=== PATIENT | female | born 1990 | race Two or more races ===

== ENCOUNTER 2025-07-20 20:36 | Emergency (ER) | payer OTHER, SELFPAY ==
[2025-07-20 20:45] VITALS: BP 124/83; PULSE 108; RESP 20; TEMP 37.2; O2SAT 96; BMI 34.4
--- NOTE | 2025-07-20 21:11 | PD.EDABDPN ---
ED Abdominal Pain RME/HPI General Chief Complaint: Abdominal Pain Stated complaint: POSS FEEDING TUBE INFECTION Time seen by provider: 07/20/25 20:46 Arrival date/time: 07/20/25 20:36 RME / HPI RME / HPI narrative: See [facility] for Dr. Cuevas's HPI documentation. Related Data Previous Rx's ?Medication ?Instructions ?Recorded albuterol sulfate 90 mcg/actuation 2 puff inhalation Q6H PRN 07/21/25 aerosol inhaler shortness of breath or wheezing #8.5 grams hydrocodone 5 mg-acetaminophen 325 2 tab PO Q8H PRN pain #20 tabs 07/21/25 mg tablet ondansetron 4 mg disintegrating 4 mg PO TID PRN nausea and 07/21/25 tablet vomiting 30 days #10 tabs oseltamivir 75 mg capsule (Tamiflu) 75 mg PO BID 5 days #10 caps 07/21/25 prednisone 50 mg tablet 50 mg PO QDAY #3 tabs 07/21/25 Allergies Allergy/AdvReac Type Severity Reaction Status Date / Time No Known Allergies Allergy Verified 07/20/25 20:37 Review of Systems Review of Systems Systems Reviewed: All systems reviewed, normal except as documented Past Medical History Social History SMOKING STATUS: Never smoker ED Exam Narrative Physical exam: See [facility] for Dr. Cuevas's physical exam documentation. Course Quality Measures none Orders Category Date Time Status Bedside COVID-19 Antigen Test NOW Care 07/20/25 21:18 Completed Bedside Influenza A&B Antigen Test NOW Care 07/20/25 21:[address] chest abdomen pelvis wo Stat Exams 07/20/25 21:19 Completed US abdomen limited Stat Exams 07/20/25 21:19 Completed Amylase Stat Lab 07/20/25 21:32 Completed Beta Hydroxybutyrate Stat Lab 07/20/25 21:32 Completed Bilirubin,Direct Stat Lab 07/20/25 21:32 Completed CBC Stat Lab 07/20/25 21:32 Completed CMP [Comprehensive Metabolic Panel] Stat Lab 07/20/25 21:32 Completed CRP [C-Reactive Protein] Stat Lab 07/20/25 21:32 Completed ESR [Sed Rate (ESR)] Stat Lab 07/20/25 21:32 Completed HCG,Qualitative Serum Stat Lab 07/20/25 21:32 Completed Lipase Stat Lab 07/20/25 21:32 Completed Magnesium Stat Lab 07/20/25 21:32 Completed Procalcitonin Stat Lab 07/20/25 21:32 Completed UA, C/S IF [Urinalysis, C/S if Indicated] Stat Lab 07/20/25 22:07 Completed ACETAMINOPHEN w/COD 300-30 [Tylenol w/Cod #3] Med 07/20/25 21:18 Discontinued 2 tab PO X1 ONE Morphine* Inj Med 07/20/25 22:55 Discontinued 10 mg IM X1 ONE Ondansetron Odt [Zofran Odt] Med 07/20/25 21:18 Discontinued 4 mg PO X1 ONE Oseltamivir [Tamiflu] Med 07/20/25 22:09 Discontinued 75 mg PO X1 ONE Vital Signs Vital signs: Vital Signs Temperature 98.9 F 07/20/25 20:45 Pulse Rate 108 H 07/20/25 20:45 Respiratory Rate 20 07/20/25 20:45 Blood Pressure 124/83 07/20/25 20:45 Pulse Oximetry (%) 96 07/20/25 20:45 Oxygen Delivery Method Room Air 07/20/25 20:45 Abdominal Pain MDM MDM Narrative MDM Narrative:: This section includes all my notes and documentations, including HPI, PE, and ED course. Andrey Cuevas MD HPI: 35yo female with a history of gastroparesis s/p G-tube placement here with vomiting and abdominal pain for several days. No diarrhea. No other complaints reported. ROS: All negative except as documented in HPI. Physical Exam: General: Alert and oriented. No acute distress when remaining still. Eyes: Conjunctivae and lids clear. ENT: No nasal congestion. Neck: Supple. Heart: RRR. Lungs: No respiratory distress. Good air movement. No rhonchi, wheezing, rales. Abdomen: Soft and nontender. Normal bowel sounds. No distension. No rebound or guarding. Back: No CVA tenderness. Skin: Warm and dry. Neuro: Alert and oriented X 3. I reviewed all diagnostic test results. My review of the abdominal ultrasound report is NAD. My review of the CT abdomen pelvis report is NAD. Blood tests and urine tests are unremarkable. COVID negative. Influenza positive. At this point, diagnoses include: Influenza Treatment here included: Tylenol with Codeine Morphine Zofran Tamiflu Significant improvement noted. Recommend outpatient management. Based on my best medical judgment, made decision no further evaluation or treatment indicated at this time. Patient understands and agrees to the discharge instructions customized and printed, see below. Discharge instructions from Dr. Cuevas: --No physical exertion for 3 days to help rest your lungs. --No smoking and no exposure to smoking or pets or dust or cold air. --Tamiflu to kill the influenza germs. --Prednisone to help decrease inflammation of the lungs. --Dixon for severe pain. --Albuterol 2 puffs every 4-6 hours as needed for cough or shortness or breath. ?Increase oral fluid. We need extra fluid when we are sick. Zofran for nausea/vomiting. --See a private doctor next week if not completely better. --Seek immediate medical care with significant worsening or with any concerns. Andrey Cuevas MD Patient data External records reviewed:: [facility] previous records (Per chart review, patient has no previous ED visits or admissions to this facility.) Clinical information provided by:: patient Social determinants that could affect healthcare access:: none Patient has the following chronic illnesses:: none How is presenting disease/condition affected by chronic disease/condition?: no chronic disease Evaluation data The following diagnostics were reviewed and interpreted by me:: lab results and radiology exam(s) Lab and/or radiology exams considered but not ordered:: none Interpretation Summary: I reviewed all diagnostic test results. My review of the abdominal ultrasound report is NAD. My review of the CT abdomen pelvis report is NAD. Blood tests and urine tests are unremarkable. COVID negative. Influenza positive. Medications / Prescriptions Medications or Prescriptions considered but not ordered:: none Medication administrations:: Medication Administration History Discontinued Medications Acetaminophen/Codeine Phosphate (Acetaminophen W/Cod 300-30 Tablet) 2 tab PO X1 ONE Stop: 07/20/25 21:19 Last Admin: 07/20/25 21:47 Dose: 2 tab Documented By: CVL Morphine Sulfate (Morphine Sulf Inj 4 Mg/Ml Vial) 10 mg IM X1 ONE Stop: 07/20/25 22:56 Last Admin: 07/20/25 23:40 Dose: 10 mg Documented By: CVL Ondansetron HCl (Ondansetron Odt 4 Mg Tabrap) 4 mg PO X1 ONE; Protocol Stop: 07/20/25 21:19 Last Admin: 07/20/25 21:47 Dose: 4 mg Documented By: CVL Oseltamivir Phosphate (Oseltamivir 75 Mg Capsule) 75 mg PO X1 ONE Stop: 07/20/25 22:10 Last Admin: 07/20/25 22:45 Dose: 75 mg Documented By: CVL Tylenol with Codeine, Morphine, Zofran, Tamiflu Consultations Consultation(s) initiated? (list below): No Diagnosis Differential diagnosis abdominal pain: acute appendicitis, calculus of kidney, constipation, diverticulitis, endometriosis, gastroenteritis, pancreatitis, small bowel obstruction and other (Viral infection) Most likely diagnosis given after review of the tests above:: Influenza Admission Indicated Admission indicated?: not indicated Explain why admission is indicated or not indicated:: With significant improvement and no condition needing emergent intervention, there was no indication for admission. Admission Request Was there a request for admission?: No Disposition Plan Disposition Plan: Discharge Discharge Attestation Discharge Attestation: The patient and all family members were given an opportunity to ask questions and understood the discharge instructions. Discharge instructions specifically effects, indications for sooner follow up or return to the emergency department, and the expected course of current diagnosis. Patient condition: Stable Discharge Plan Plan Patient Disposition: HOME (Self Care) Prescriptions/Referrals Prescriptions/Med Rec: New albuterol sulfate 90 mcg/actuation HFA aerosol inhaler 2 puff inhalation Q6H PRN (Reason: shortness of breath or wheezing) Qty: 8.5 0RF hydrocodone-acetaminophen 5-325 mg tablet 2 tab PO Q8H MDD 6 PRN (Reason: pain) Qty: 20 0RF ondansetron 4 mg tablet,disintegrating 4 mg PO TID PRN (Reason: nausea and vomiting) 30 Days Qty: 10 0RF oseltamivir [Tamiflu] 75 mg capsule 75 mg PO BID 5 Days Qty: 10 0RF prednisone 50 mg tablet 50 mg PO QDAY Qty: 3 0RF Referrals: No Primary/Family,Physician [Primary Care Provider] - In 1 week Problem List Clinical Impression: Influenza Patient/Caregiver Discharge Instructions Discharge Activity: activity as tolerated Education Materials: ED Influenza (Adult) Additional Instructions: Discharge instructions from Dr. Cuevas: --No physical exertion for 3 days to help rest your lungs. --No smoking and no exposure to smoking or pets or dust or cold air. --Tamiflu to kill the influenza germs. --Prednisone to help decrease inflammation of the lungs. --Dixon for severe pain. --Albuterol 2 puffs every 4-6 hours as needed for cough or shortness or breath.?? ?Increase oral fluid.? We need extra fluid when we are sick.?? Zofran for nausea/vomiting. --See a private doctor next week if not completely better. --Seek immediate medical care with significant worsening or with any concerns. Print Language: Syrian Stand Alone Forms: Michelle Award Info., Patient Portal Info Letter
--- NOTE | 2025-07-20 21:19 | XR_ITS ---
Examination: CT chest, without intravenous contrast. CT abdomen, without intravenous contrast. CT pelvis, without intravenous contrast. 2-D sagittal and coronal reconstructions. 3-D reconstructions. Date and time of exam:July 21, 2025, 0014 hrs. Indications: Chest pain shortness of breath today, difficulty swallowing abdominal pain one week CTDI vol (mgy) 10.6 DLP (MGycm)708 Technique: Multiple CT images, 3.0 mm slice thickness, obtained chest, abdomen, pelvis, with the high-resolution 64 slice scanner.. Sagittal and coronal 2-D reconstructions are obtained. 3-D reconstructions Low dose protocols were performed. One or more of the following dose reduction techniques were used; automated exposure control, adjustment of the mA and/or KV according to patient size, use of iterative reconstruction technique. Findings: No thoracic aortic aneurysmal dilatation Pulmonary artery segments are not enlarged. No paratracheal tracheobronchial or bronchopulmonary adenopathy. 4 mm pulmonary nodule right upper lobe. 5 mm pulmonary nodule right middle lobe. No pneumonia or pulmonary edema or pleural disease. No visualized liver or splenic lesion. Gastrostomy tube tip in the pylorus No bowel obstruction Spleen not enlarged No hydronephrosis 2 mm lower pole right renal calculus Aorta normal size No pericecal inflammatory change No pelvic mass Intact urinary bladder The osseous structures intact Impression: No acute process in the chest abdomen or pelvis Noncalcified pulmonary nodules as above, recommend follow-up
--- NOTE | 2025-07-20 21:19 | XR_ITS ---
Examination: Abdomen sonogram, Limited Date and time of exam: July 20, 2025, 2136 hrs. Indications: Right upper abdominal pain nausea vomiting beginning one week ago Technique: Real-time garcia scale transabdominal sonographic images of the upper abdomen obtained. Findings: Normal gallbladder. Normal common bile duct 0.4 cm Pancreatic head 2.1 cm. Liver 17.1 Fatty infiltration Normal hepatopedal portal venous flow Patent IVC Impression: Normal gallbladder Hepatomegaly with fatty infiltration no focal liver lesions
[2025-07-20] MEDS: ONDANSETRON ODT 4 MG TABRAP PO (21:47)
[2025-07-20] MEDS: ACETAMINOPHEN w/COD 300-30 TABLET 2 TAB PO (21:47)
[2025-07-20 22:07] LABS: Beta Hydroxybutyrate 0.1 mmol/L (<0.6)
[2025-07-20 22:08] LABS: Basophils # (Auto) 0.1 Thou/mm3 (0.0-0.2); Basophils % (Auto) 1 % (0-2.5); Eosinophils # (Auto) 0.1 Thou/mm3 (0.0-0.5); Eosinophils % (Auto) 2 % (0-10); Hematocrit 37.8 % (36.0-46.0); Hemoglobin 12.5 g/dL (12.0-16.0); Immature Granulocytes Auto 0.02 Thou/mm3 (0.00-0.00); Lymphocytes # (Auto) 2.2 Thou/mm3 (1.0-4.8); Lymphocytes % (Auto) 36 % (10-50); Mean Corpuscular HGB Conc 33.1 g/dl (31.0-37.0); Mean Corpuscular Hemoglobin 32.4 pg (25.0-35.0); Mean Corpuscular Volume 98 fL (80-100); Monocytes # (Auto) 0.5 Thou/mm3 (0.0-0.8); Monocytes % (Auto) 8 % (0-12); Neutrophils # (Auto) 3.4 Thou/mm3 (1.8-7.7); Neutrophils % (Auto) 54 % (37-80); Nucleated Red Blood Cell # 0.00 Thou/mm3 (0.00-0.00); Nucleated Red Blood Cell % 0 /100 WBC (0); Platelet Count 329 Thou/mm3 (140-440); RDW Standard Deviation 49.3 fL (36.4-46.3); Red Blood Count 3.86 Miln/mm3 (4.00-5.20); White Blood Count 6.2 Thou/mm3 (3.6-11.0)
[2025-07-20 22:11] LABS: Collection Type, Urine Clean Catch
[2025-07-20 22:15] LABS: Sed Rate (ESR) 26 mm/hr (0-20)
[2025-07-20 22:18] LABS: Amorphous Crystals,Urine Present (Absent); Bilirubin,Urine Negative (Negative); Blood,Urine 1+ (Negative); Clarity,Urine Turbid (Clear/Hazy); Color,Urine Yellow (Lt Yel-Yel); Culture Indicated,Urine Not Indicated; Glucose, Urine Negative (Negative); Ketones,Urine Negative (Negative); Leukocyte Esterase,Urine Negative (Negative); Nitrite,Urine Negative (Negative); PH,Urine 6.5 (5.0-7.0); Protein,Urine Trace (Neg - Trace); RBC,Urine 12 /hpf (0-3); Specific Gravity,Urine 1.022 (1.001-1.035); Squamous Epithelial Cell,Urine 15 /hpf (0-5); Urobilinogen,Urine Negative mg/dL (0.0-1.0); WBC,Urine 4 /hpf (0-5)
[2025-07-20 22:21] LABS: HCG,Qualitative Serum Negative
[2025-07-20 22:37] LABS: Alanine Aminotransferase < 7 U/L (10-49); Albumin, Serum 4.6 gm/dL (3.5-5.0); Albumin/Globulin Ratio 1.8 (1.2-2.2); Alkaline Phosphatase 57 U/L (46-116); Amylase 27 U/L (30-118); Anion Gap 12 (7-16); Aspartate Amino Transferase 16 U/L (0-34); BUN/Creatinine Ratio 8 Ratio (12-20); Bilirubin,Direct 0.1 mg/dL (0.0-0.3); Bilirubin,Total 0.3 mg/dL (0.3-1.2); Blood Urea Nitrogen 8 mg/dL (9-23); C-Reactive Protein < 0.5 mg/dL (0.0-0.9); Calcium 10.5 mg/dL (8.3-10.6); Calcium (Corrected) 10.5 mg/dL (8.5-10.1); Carbon Dioxide 23.4 mMol/L (20.0-31.0); Chloride 113 mMol/L (98-107); Creatinine (Component) 1.0 mg/dL (0.6-1.3); Estimated Creatinine Clearance 85.1 mL/min (>60); Globulin 2.5 gm/dL (2.3-3.5); Glucose 94 mg/dL (74-106); Lipase 38 U/L (12-53); Magnesium 1.8 mg/dL (1.6-2.6); Osmolality,Calculated 292 (275-295); Potassium 4.0 mMol/L (3.4-5.1); Procalcitonin 0.04 ng/ml (0.0-0.49); Sodium 148 mMol/L (136-145); Total Protein 7.1 gm/dL (5.7-8.2); eGFR > 60 See Note
[2025-07-20] MEDS: OSELTAMIVIR 75 MG CAPSULE PO (22:45)
[2025-07-20] MEDS: MORPHINE SULF INJ 4 MG/ML VIAL 10 MG IM (23:40)
[2025-07-21 01:53] VITALS: BP 135/91; PULSE 83; RESP 18; TEMP 36.8; O2SAT 98
--- NOTE | 2025-07-21 01:56 | PRELIM_ITS ---
CT scan of the chest, abdomen and pelvis without intravenous contrast (axial sections with sagittal and coronal reformats) July 21, 2025 0014 hours Clinical History: Dysphagia and abdominal pain Findings: There is a 4 mm nodule in the right upper lobe (image [id number]) and a 5 mm nodule in the right middle lobe. There is no focal consolidation or opacity. Bibasilar atelectasis is seen. There is no pleural effusion or pneumothorax. The aorta is unremarkable on this noncontrast study. No evidence of mediastinal mass or lymphadenopathy. There is no pericardial effusion. The liver, gallbladder, spleen, pancreas, adrenals and kidneys are unremarkable on this noncontrast study. No evidence of renal/ureteric calculus or hydroureteronephrosis. There is a percutaneous gastrostomy tube noted in place with its tip in the gastric pylorus. No evidence of bowel obstruction. The appendix is not visualized. The urinary bladder is unremarkable. The uterus and adnexa are unremarkable. There is no free fluid or free air. The osseous structures are unremarkable. Impression: No evidence of acute intrathoracic, intraabdominal or pelvic pathology on this noncontrast study. Right upper lobe and right middle lobe nodule as described. Recommend follow up as per Fleischner criteria. Report Electronically Signed By: Reagan Oconnell 07/21/2025 1:55:48 AM [EST]
[2025-07-21 02:06] VITALS: RESP 18
== END 2025-07-21 04:39 | disposition home or self-care (01) ==
PROVIDERS: Emergency Provider Emergency Medicine
DX: J11.1 Influenza due to unidentified influenza virus with other respiratory manifestations (principal)
CPT/HCPCS: 36415; 71250; 74176; 76705; 80053; 81001; 82010; 82150; 82248; 83690; 83735; 84145; 84703; 85025; 85652; 86140; 87400; 87811; 96372; 99283; J2270; Q0162; A9270

== ENCOUNTER → 2025-08-16 | Outpatient (CLI) | payer OTHER, SELFPAY ==
[2025-08-16 14:01] LABS: Basophils # (Auto) 0.1 Thou/mm3 (0.0-0.2); Basophils % (Auto) 1 % (0-2.5); Eosinophils # (Auto) 0.1 Thou/mm3 (0.0-0.5); Eosinophils % (Auto) 2 % (0-10); Hematocrit 40.0 % (36.0-46.0); Hemoglobin 12.9 g/dL (12.0-16.0); Immature Granulocytes Auto 0.04 Thou/mm3 (0.00-0.00); Immature Reticulocyte Fraction 19.5 % (3.0-15.9); Lymphocytes # (Auto) 2.3 Thou/mm3 (1.0-4.8); Lymphocytes % (Auto) 35 % (10-50); Mean Corpuscular HGB Conc 32.3 g/dl (31.0-37.0); Mean Corpuscular Hemoglobin 31.9 pg (25.0-35.0); Mean Corpuscular Volume 99 fL (80-100); Monocytes # (Auto) 0.4 Thou/mm3 (0.0-0.8); Monocytes % (Auto) 6 % (0-12); Neutrophils # (Auto) 3.8 Thou/mm3 (1.8-7.7); Neutrophils % (Auto) 57 % (37-80); Nucleated Red Blood Cell # 0.00 Thou/mm3 (0.00-0.00); Nucleated Red Blood Cell % 0 /100 WBC (0); Platelet Count 373 Thou/mm3 (140-440); RDW Standard Deviation 49.0 fL (36.4-46.3); Red Blood Count 4.05 Miln/mm3 (4.00-5.20); Reticulocyte % (Auto) 2.2 % (0.5-1.5); Reticulocyte Absolute Auto 88.3 Biln/L (25.0-75.0); Reticulocyte Hgb Content 33.1 pg (28.0-35.0); White Blood Count 6.7 Thou/mm3 (3.6-11.0)
[2025-08-16 14:27] LABS: Folate 23.08 ng/mL (>5.38); Vitamin B12 501 pg/mL (211-911)
[2025-08-16 14:28] LABS: Ferritin 6 ng/mL (7.3-270.7); Iron 80 mcg/dL (50-170); Percent Iron Saturation 18 % (20-55); Total Iron Binding Capacity 442 mcg/dL (250-425); Unsaturated Iron Binding 362 (225-295)
[2025-08-16 14:35] LABS: Sed Rate (ESR) 21 mm/hr (0-20)
[2025-08-16 14:38] LABS: Alanine Aminotransferase < 7 U/L (10-49); Albumin, Serum 4.6 gm/dL (3.5-5.0); Albumin/Globulin Ratio 1.8 (1.2-2.2); Alkaline Phosphatase 62 U/L (46-116); Anion Gap 10 (7-16); Aspartate Amino Transferase 12 U/L (0-34); BUN/Creatinine Ratio 9 Ratio (12-20); Bilirubin,Total 0.2 mg/dL (0.3-1.2); Blood Urea Nitrogen 9 mg/dL (9-23); C-Reactive Protein < 0.5 mg/dL (0.0-0.9); Calcium 10.1 mg/dL (8.3-10.6); Calcium (Corrected) 10.1 mg/dL (8.5-10.1); Carbon Dioxide 25.7 mMol/L (20.0-31.0); Chloride 107 mMol/L (98-107); Creatinine (Component) 1.0 mg/dL (0.6-1.3); Globulin 2.5 gm/dL (2.3-3.5); Glucose 86 mg/dL (74-106); Magnesium 1.9 mg/dL (1.6-2.6); Osmolality,Calculated 282 (275-295); Phosphorous 3.8 mg/dL (2.4-5.1); Potassium 4.0 mMol/L (3.4-5.1); Prealbumin 29.3 mg/dL (10.0-40.0); Sodium 143 mMol/L (136-145); Total Protein 7.1 gm/dL (5.7-8.2); eGFR > 60 See Note
[2025-08-16 15:11] LABS: RA Screen Negative (Negative)
[2025-08-24 22:06] LABS: Sjogren's antibody (SS-A) <1.0 NEG AI (<1.0 NEGATIVE); Sm Antibody <1.0 NEG AI (<1.0 NEGATIVE)
[2025-08-25 06:40] LABS: ANA Screen, IFA NEGATIVE (NEGATIVE); Complement Component C3* 165 mg/dL (83-193); Complement Component C4c* 32 mg/dL (15-57); DNA (ds) Antibody* 1 IU/mL; Mitochondrial Ab NEGATIVE (NEGATIVE); Myocardial Ab, IF NEGATIVE (NEGATIVE); Sjogren's Antibody (SS-B) <1.0 NEG AI (<1.0 NEGATIVE); Striated Muscle Ab NEGATIVE (NEGATIVE)
[2025-08-25 06:41] LABS: Actin Antibody (IgG)* <20 U; Gastric Parietal Cell Ab* <20.0 U; Scl-70 Antibody* <1.0 NEG AI (<1.0 NEGATIVE); Sm/RNP Antibody <1.0 NEG AI (<1.0 NEGATIVE); Thyroid Peroxidase Antibodies* 1 IU/mL (<9)
== END | disposition home or self-care (01) ==
PROVIDERS: PCP Family Medicine; Referring Provider Internal Medicine Gastroenterology; Visit Provider Internal Medicine Gastroenterology
DX: F11.90 Opioid use, unspecified, uncomplicated (principal); K31.84 Gastroparesis; R11.2 Nausea with vomiting, unspecified; G40.909 Epilepsy, unspecified, not intractable, without status epilepticus
CPT/HCPCS: 36415; 80053; 82607; 82728; 82746; 83516; 83540; 83550; 83735; 84100; 84134; 85025; 85046; 85652; 86015; 86038; 86140; 86160; 86225; 86235; 86255; 86376; 86430

== ENCOUNTER → 2025-10-10 | Outpatient (CLI) | payer OTHER, SELFPAY ==
[2025-10-10 11:04] LABS: Basophils # (Auto) 0.0 Thou/mm3 (0.0-0.2); Basophils % (Auto) 0 % (0-2.5); Eosinophils # (Auto) 0.1 Thou/mm3 (0.0-0.5); Eosinophils % (Auto) 2 % (0-10); Hematocrit 39.8 % (36.0-46.0); Hemoglobin 12.6 g/dL (12.0-16.0); Immature Granulocytes Auto 0.06 Thou/mm3 (0.00-0.00); Lymphocytes # (Auto) 2.3 Thou/mm3 (1.0-4.8); Lymphocytes % (Auto) 31 % (10-50); Mean Corpuscular HGB Conc 31.7 g/dl (31.0-37.0); Mean Corpuscular Hemoglobin 29.1 pg (25.0-35.0); Mean Corpuscular Volume 92 fL (80-100); Monocytes # (Auto) 0.4 Thou/mm3 (0.0-0.8); Monocytes % (Auto) 5 % (0-12); Neutrophils # (Auto) 4.5 Thou/mm3 (1.8-7.7); Neutrophils % (Auto) 61 % (37-80); Nucleated Red Blood Cell # 0.00 Thou/mm3 (0.00-0.00); Nucleated Red Blood Cell % 0 /100 WBC (0); Platelet Count 381 Thou/mm3 (140-440); RDW Standard Deviation 46.7 fL (36.4-46.3); Red Blood Count 4.33 Miln/mm3 (4.00-5.20); White Blood Count 7.4 Thou/mm3 (3.6-11.0)
[2025-10-10 11:05] LABS: Glucose Estimated Average 105 mg/dL (80-131); Hemoglobin A1C 5.3 % Hgb (4.8-6.0)
[2025-10-10 11:39] LABS: Alanine Aminotransferase < 7 U/L (10-49); Albumin, Serum 5.2 gm/dL (3.5-5.0); Albumin/Globulin Ratio 1.9 (1.2-2.2); Alkaline Phosphatase 76 U/L (46-116); Anion Gap 13 (7-16); Aspartate Amino Transferase 16 U/L (0-34); BUN/Creatinine Ratio 14 Ratio (12-20); Bilirubin,Total 0.2 mg/dL (0.3-1.2); Blood Urea Nitrogen 14 mg/dL (9-23); Calcium 9.7 mg/dL (8.3-10.6); Calcium (Corrected) 9.7 mg/dL (8.5-10.1); Carbon Dioxide 23.5 mMol/L (20.0-31.0); Cardiac Risk Estimate 2.1 RATIO (3.7-5.6); Chloride 107 mMol/L (98-107); Cholesterol 158 mg/dL (132-200); Creatinine (Component) 1.0 mg/dL (0.6-1.3); Free T4 (Free Thyroxine) 1.33 ng/dL (0.89-1.76); Globulin 2.7 gm/dL (2.3-3.5); Glucose 85 mg/dL (74-106); HDL Cholesterol 74 mg/dL (40-60); LDL Cholesterol,Calculated 72 mg/dL (0-130); Osmolality,Calculated 284 (275-295); Potassium 4.2 mMol/L (3.4-5.1); Sodium 143 mMol/L (136-145); Thyroid Stimulating Hormone 2.41 uIU/mL (0.55-4.78); Total Protein 7.9 gm/dL (5.7-8.2); Triglycerides 61 mg/dL (30-150); eGFR > 60 See Note
== END | disposition home or self-care (01) ==
LOC: COPL 09:45
PROVIDERS: PCP Family Medicine; Referring Provider Internal Medicine; Visit Provider Internal Medicine
DX: R63.5 Abnormal weight gain (principal); K31.84 Gastroparesis; Z79.01 Long term (current) use of anticoagulants
CPT/HCPCS: 36415; 80053; 80061; 83036; 84439; 84443; 85025